=== PATIENT | female | born 1985 | race African-American/Black ===

== ENCOUNTER 2022-08-13 07:36 | Emergency (ER) | payer OTHER, SELFPAY ==
--- NOTE | ~2022-08-13 | XR_ITS ---
EXAMINATION: XR chest 2V DATE: 08/13/2022 09:44 INDICATION: Dizziness. TECHNIQUE: Frontal and lateral views of the chest were obtained. COMPARISON: Chest 2 views 09/26/18 FINDINGS: There is no pneumonia, pleural effusion, or pneumothorax. The heart size is normal. IMPRESSION: 1. No acute cardiopulmonary disease. Reviewed, dictated and finalized at location A. [employer] MUSIC THERAPIST
--- NOTE | ~2022-08-13 | CT_ITS ---
EXAMINATION: CT brain wo con DATE: 08/13/2022 09:39 INDICATION: Dizziness. TECHNIQUE: Computed tomography (CT) of the head was performed without intravenous contrast. The mA wa s adjusted according to patient size. Iterative reconstruction technique was employed. The dose-lengt h product was 529.67 mGy-cm. COMPARISON: Head CT 09/26/2018 FINDINGS: There is no intracranial hemorrhage, acute infarction, or abnormal intracranial mass lesion . The ventricles are normal in size. The orbits are normal. There is mild mucosal thickening in the p aranasal sinuses. The mastoid air cells are normal. IMPRESSION: 1. Normal brain. Reviewed, dictated and finalized at location A. [employer] TECHNICIAN IMPRESSION: 1. Normal brain.
[2022-08-13 07:38] VITALS: BP 155/106; PULSE 120; RESP 20; TEMP 37.2; O2SAT 97
[2022-08-13 08:06] VITALS: PULSE 112
[2022-08-13 08:07] VITALS: BP 158/108; PULSE 108; RESP 18; O2SAT 100
--- NOTE | 2022-08-13 08:57 | ECG_ITS ---
Measurements Intervals [place] Rate: 94 P: 67 SC: 156 QRS: 39 QRSD: 80 T: 40 QT: 305 QTc: 382 Interpretive Statements SINUS RHYTHM NORMAL ECG NO PREVIOUS ECG AVAILABLE FOR COMPARISON Electronically Signed On 08-14-2022 6:15:04 [employer] by Brayden Duncan M.D.
--- NOTE | 2022-08-13 09:01 | ED.GENADULT ---
HPI - General Adult General Chief complaint: Unspecified Stated complaint: MULTIPLE C/O Time Seen by Provider: 08/13/22 08:47 History of Present Illness HPI narrative: 37-year-old female no medical problems presents to the emergency room for multiple complaints. Patient states she had an endometrial ablation in July and was experiencing some vaginal discharge. States that she had followed up with her NEUROPSYCHOLOGY DIVISION CHIEF and was placed on Levaquin and Flagyl. Patient has been taking these antibiotics for the past 7 days. Since taking the antibiotic she has been experiencing dizziness, lightheadedness, nausea and numbness in her hands and feet. Patient also remarks that she has noticed an elevated blood pressure and heart rate. Reports she has a NEUROPSYCHOLOGY DIVISION CHIEF appointment scheduled for tomorrow. Related Data Allergies Allergy/AdvReac Type Severity Reaction Status Date / Time diphenhydramine Allergy Unknown Hives Unverified 08/13/22 08:09 Review of Systems Review of Systems: CONSTITUTIONAL: Denies fever, chills, or sweats. EYES: Denies visual changes, redness, or discharge. ENT: Denies rhinorrhea, congestion, sore throat, or otalgia. CARDIOVASCULAR: Denies chest pain, palpitations, or edema. RESPIRATORY: Denies cough or dyspnea. GASTROINTESTINAL: Denies abdominal pain, nausea, vomiting, or diarrhea. GENITOURINARY: Reports vaginal discharge SKIN: Denies rash or itching. MUSCULOSKELETAL: Denies back pain, joint pain, or myalgia. NEUROLOGIC: Reports numbness and dizziness PSYCHIATRIC: Denies anxiety or depression. Exam Narrative: GENERAL: Well-appearing, well-nourished, no physical limitations, and in no acute distress. HEAD: Normocephalic, atraumatic. EYES: Conjunctivae normal, PERRLA and EOMI. CHEST: Clear to auscultation. No respiratory distress. No wheezes rales or rhonchi. HEART: Regular rate and rhythm. No murmur heard. Normal peripheral pulses. ABDOMEN: Soft, nontender, nondistended, normal active bowel sounds. : Deferred EXTREMITIES: Normal range of motion. No edema. No clubbing or cyanosis SKIN: Warm, dry, no rash. No noted wounds NEURO: No focal deficits. Alert and oriented x3. MAEW. CN's II-XI intact bilaterally, normal gait PSYCH: Cooperative. Normal mood and affect. Course Vital Signs Vital signs: Vital Signs Temperature 37.2 C 08/13/22 07:38 Pulse Rate 120 H 08/13/22 07:38 Respiratory Rate 20 08/13/22 07:38 Blood Pressure 155/106 H 08/13/22 07:38 Pulse Oximetry 97 08/13/22 07:38 Oxygen Delivery Room Air 08/13/22 07:38 Temperature 37.2 C 08/13/22 07:38 Pulse Rate 108 H 08/13/22 08:07 Respiratory Rate 18 08/13/22 08:07 Blood Pressure 158/108 H 08/13/22 08:07 Pulse Oximetry 100 08/13/22 08:07 Oxygen Delivery Room Air 08/13/22 07:38 Medical Decision Making MDM Narrative Medical decision making narrative: 37-year-old female no medical problems presented the emergency room for evaluation of multiple medical complaints. Patient stated that she recently had a uterine ablation and was experiencing a vaginal discharge. NEUROPSYCHOLOGY DIVISION CHIEF had placed her on Levaquin and Flagyl. Patient states that her symptoms began following her taking the antibiotics. Was complaining of tingling to her extremities, and elevated blood pressure, nausea and dizziness. CT of the brain showed no intracranial abnormalities. EKG showed normal sinus rhythm no signs of ischemia. Lab work was all unremarkable, showing no signs of infection or electrolyte abnormalities. Troponin was negative. Symptoms are more consistent with side effects of her antibiotics. Patient does have appointment scheduled with her TAPING FOREMAN tomorrow. Will encourage patient to continue taking her antibiotics and keep her appointment. Vital Signs Vital Signs: Vital Signs Temperature 37.2 C 08/13/22 07:38 Pulse Rate 120 H 08/13/22 07:38 Respiratory Rate 20 08/13/22 07:38 Blood Pressure 155/106 H 08/13/22 07:38 Pulse Oximetry 97 08/13/22 0
[2022-08-13] MEDS: ONDANSETRON INJ 4 MG/2 ML VIAL IV PUSH (09:13)
[2022-08-13 09:22] LABS: Basophils Percent Auto 0.4 % (0.2-1.2); Hematocrit 43.1 % (37.0-47.0); Hemoglobin 14.7 g/dL (12.0-15.0); Immature Granulocyte Absolute 0.02 K/mm3 (0.00-0.031); Immature Granulocyte Percent A 0.4 % (0-0.5); Lymphocytes Absolute Auto 0.47 K/mm3 (0.9-3.2); Mean Corpuscular HGB Conc 34.1 g/dl (32-36); Mean Corpuscular Hemoglobin 30.6 pg (26-34); Mean Corpuscular Volume 89.8 fl (80-100); Mean Platelet Volume 10.1 fl (7.4-10.4); Monocytes Absolute Auto 0.4 K/mm3 (0.1-0.6); Monocytes Percent Auto 7.3 % (2.6-8.5); Neutrophils Absolute Auto 4.3 K/mm3 (1.3-6.7); Neutrophils Percent Auto 82.9 % (45.5-73.1); Platelet Count Result 216 k/mm3 (150-375); Red Cell Distribution Width 12.4 % (11.5-14.5); White Blood Count 5.2 K/mm3 (4.5-10.0)
[2022-08-13 09:32] LABS: Alanine Aminotransferase 12 U/L (6-35); Albumin Level 4.6 g/dL (3.5-5.1); Alkaline Phosphatase 59 U/L (38-126); Anion Gap 5 mmol/L (8-16); Aspartate Amino Transferase 22 U/L (14-36); Bilirubin,Total 0.5 mg/dL (0.2-1.3); Blood Urea Nitrogen 11 mg/dL (7-17); Calcium 8.5 mg/dL (8.4-10.2); Carbon Dioxide 26 mmol/L (22-30); Chloride 101 mmol/L (98-107); Estimated CRCL calculation 58 ml/min; Estimated Glomerular Filt Rate > 60; Glucose 89 mg/dL (65-110); Sodium 132 mmol/L (137-145)
[2022-08-13 09:43] LABS: Appearance Urine Clear (Clear); Bilirubin Urine Negative (Negative); Blood Urine Negative (Negative); Color Urine Yellow (Yellow); Glucose Urine UA Negative (Negative); Ketones Urine Negative (Negative); Leukocyte Esterase Ur Trace LEU/UL (Negative); Nitrate Urine Negative (Negative); Protein Urine Trace mg/dL (Negative); Specific Grav Ur 1.025 (1.001-1.035); Urobilinogen Urine 0.2 mg/dL (<2.0); pH Urine 8.5 (5.0-9.0)
[2022-08-13 09:44] LABS: Troponin I < 0.012 ng/mL (0.000-0.034)
[2022-08-13 09:48] LABS: Bacteria Urine Trace /hpf; Mucus Urine Rare /lpf; RBC Urine 0-2 /hpf (0-2); Squamous Epithelial Cell Urine Moderate /hpf (Few)
[2022-08-13 09:49] LABS: Add Urine Microscopic? YES
[2022-08-13 10:19] VITALS: BP 145/98; PULSE 102; RESP 18; O2SAT 100
== END 2022-08-13 10:20 | disposition home or self-care (01) ==
PROVIDERS: Emergency Provider Nurse Practitioner Family
DX: R42 Dizziness and giddiness (principal); R11.0 Nausea; T36.8X5A Adverse effect of other systemic antibiotics, initial encounter
CPT/HCPCS: 36415; 70450; 71046; 80053; 81001; 84484; 85025; 93005; 96374; 99284; J2405